=== PATIENT | female | born 2000 | race Caucasian/White ===

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

== ENCOUNTER 2019-05-15 00:25 | Emergency (ER) | payer OTHER ==
[~2019-05-15] VITALS: Ht 154.9 cm; Wt 63.5 kg
[2019-05-15 00:30] VITALS: BP 124/85
--- NOTE | 2019-05-15 00:40 | NUR ---
PT AMBULATED TO BED 11 WITH STEADY GAIT.
--- NOTE | 2019-05-15 00:54 | NUR ---
PT C/O 10/04 SHARP RIGHT SIDED ABDOMINAL PAIN RADIATING TO THE BACK X3 DAYS. STATES SHE HAS TAKEN ADVIL AND TUMS FOR THE PAIN. STATES SHE HAS HAD DIARRHEA X2 DAYS, IS PASSING GAS AND BURPING, AND HAS N/V LAST EMESIS YESTERAY. STATES SHE IS ABLE TO KEEP DOWN FLUIDS AND SOLIDS. HAS TENDERNESS IN THE ABDOMEN ON PALPATION. ALL FOUR ABDOMINAL QUADRANTS HYPOACTIVE. URINE SAMPLE COLLECTED. VSS. WILL CONTINUE TO MONITOR.
--- NOTE | 2019-05-15 01:00 | NUR ---
URINE DIP HCG NEGATIVE.
--- NOTE | 2019-05-15 01:02 | NUR ---
XRAY AT BEDSIDE.
[2019-05-15] MEDS ORDERED: LACTULOSE 20 GM/30 ML UDC PO ONE (01:30)
--- NOTE | 2019-05-15 02:15 | NUR ---
PT GIVEN LACTULOSE; WILL CONTINUE TO MONITOR.
[2019-05-15 02:16] VITALS: BP 124/85
== END 2019-05-15 02:16 | disposition home or self-care (01) ==
LOC: MED 00:25
DX: K59.00 Constipation, unspecified (principal); R11.2 Nausea with vomiting, unspecified
CPT/HCPCS: 74018; 81025; 99283; Q0092

== ENCOUNTER 2019-11-27 21:31 | Emergency (ER) | payer OTHER ==
[~2019-11-27] VITALS: Ht 154.9 cm; Wt 63.0 kg
[2019-11-27 21:42] VITALS: BP 141/94
[2019-11-27] MEDS ORDERED: KETOROLAC 60 MG/2 ML VIAL IM ONE (22:15)
[2019-11-27 22:57] VITALS: BP 141/94
== END 2019-11-27 22:58 | disposition home or self-care (01) ==
LOC: MED 21:31
DX: M94.0 Chondrocostal junction syndrome [Tietze] (principal)
CPT/HCPCS: 96372; 99283; J1885

== ENCOUNTER 2020-09-13 16:58 | Emergency (ER) | payer OTHER ==
[~2020-09-13] VITALS: Ht 154.9 cm; Wt 60.3 kg
[2020-09-13 17:08] VITALS: BP 114/85
--- NOTE | 2020-09-13 17:14 | NUR ---
PT AMBULATED TO BED 11 WITH STEADY GAIT
[2020-09-13] MEDS ORDERED: FAMOTIDINE 20 MG TAB PO ONE (17:35)
[2020-09-13] MEDS ORDERED: predniSONE 20 MG TAB PO ONE (17:35)
--- NOTE | 2020-09-13 17:50 | NUR ---
PA HURST AT BEDSIDE EVALUATING PT
[2020-09-13] MEDS ORDERED: LORA10TA19 PO (17:57)
[2020-09-13] MEDS ORDERED: PRED20TA5 PO (17:57)
[2020-09-13] MEDS ORDERED: DIPH25TA53 PO (17:57)
--- NOTE | 2020-09-13 18:20 | NUR ---
d/c with VSS. d/c education given. rx of benadryl, claritin, and prednisone.
== END 2020-09-13 18:20 | disposition home or self-care (01) ==
LOC: MED 16:58
DX: R21 Rash and other nonspecific skin eruption (principal); L29.9 Pruritus, unspecified; Z79.899 Other long term (current) drug therapy
CPT/HCPCS: 99284; J7512; Q0163

== ENCOUNTER 2021-01-11 08:05 | Emergency (ER) | payer OTHER ==
[~2021-01-11] VITALS: Ht 154.9 cm; Wt 59.0 kg
[~2021-01-11 08:05] MED LIST: DIPH25TA53 PO; LORA10TA19 PO; PRED20TA5 PO
[2021-01-11 08:08] VITALS: BP 114/75
--- NOTE | 2021-01-11 08:18 | NUR ---
PT AMBULATED TO BED 6
--- NOTE | 2021-01-11 08:27 | NUR ---
20/F BIB SELF WITH C/O RLQ PAIN X1 WEEK. PATIENT STATES PAIN CAME ON SUDDENLY AND HAS SINCE BEEN INTERMITTENT, SHARP 9/10 PAIN. PATIENT REPORTS PAIN WORSENS WITH TOUCH OR WALKING, STATES SHE FEELS CONSTIPATED AND STATES PAIN WORSENS WHEN STRAINING. PATIENT REPORTS INTERMITTENT EPISODES OF NAUSEA AND STATES SHE HAS HAD ONE EPISODE OF VOMITING DAILY SINCE PAIN BEGAN, STATES PAIN IS NON RADIATING. DENIES CP, SOB, FEVER OR CHILLS.
[2021-01-11 08:57] LABS: BASOPHILS % (AUTO) 0.3 % (0.0-2.0); EOSINOPHILS # (AUTO) 0.1 K/uL (0-0.4); HEMATOCRIT 37.9 % (36-48); HEMOGLOBIN 12.8 g/dL (12.0-16.0); LYMPHOCYTES # (AUTO) 1.8 K/uL (2.5-16.5); LYMPHOCYTES % (AUTO) 17.4 % (20.5-51.1); MEAN CORPUSCULAR HEMOGLOBIN 31 pg (27-31); MEAN CORPUSCULAR HGB CONC 34 g/dL (33-37); MEAN CORPUSCULAR VOLUME 92.6 fL (80-94); MONOCYTES # (AUTO) 0.8 K/uL (0.8-1.0); MONOCYTES % (AUTO) 7.8 % (1.7-9.3); NEUTROPHILS # (AUTO) 7.6 K/uL (1.8-7.7); NEUTROPHILS % (AUTO) 73.5 % (42.2-75.2); PLATELET COUNT (AUTO) 300 K/uL (140-450); RED BLOOD CELL COUNT(AUTO) 4.09 MIL/uL (4.20-5.40); RED CELL DISTRIBUTION WIDTH 13.1 % (11.6-13.7); WHITE BLOOD COUNT (AUTO) 10.4 K/uL (4.8-10.8)
[2021-01-11] MEDS: NACL 0.9% 1,000 ML IV SCH (09:00)
[2021-01-11] MEDS: MORPHINE SULFATE 2 MG/ML SYR IVP ONE (09:01)
[2021-01-11 09:11] LABS: PROTHROMBIN TIME 9.8 secs (10.8-13.4)
--- NOTE | 2021-01-11 09:11 | NUR ---
OBTAINED CT CONSENT, PLACED IN PT CHART AT THIS TIME.
[2021-01-11] MEDS: ONDANSETRON 4 MG/2 ML VIAL IVP ONE (09:17)
--- NOTE | 2021-01-11 09:18 | NUR ---
ULTRASOUND AT BEDSIDE
[2021-01-11 09:23] LABS: ALBUMIN 3.4 g/dL (3.4-5.0); ANION GAP 16.3 (8-16); CARBON DIOXIDE 25.2 mmol/L (21-32); CREATININE 0.7 mg/dL (0.6-1.3); POTASSIUM 3.5 mmol/L (3.5-5.1); TOTAL BILIRUBIN 0.3 mg/dL (0.0-1.0)
--- NOTE | 2021-01-11 09:45 | NUR ---
PT TAKEN TO CT VIA JUSTIN
[2021-01-11] MEDS ORDERED: ONDA-188 SL (11:13)
[2021-01-11 11:28] VITALS: BP 105/66
--- NOTE | 2021-01-11 11:28 | NUR ---
Patient discharged with v/s stable. Written and verbal after care instructions given OVARIAN CYST AND ABD PAIN and explained. Patient alert, oriented and verbalized understanding of instructions. Ambulatory with steady gait. All questions addressed prior to discharge. ID band removed. Patient advised to follow up with PMD. Rx of ZOFRAN given. Patient educated on indication of medication including possible reaction and side effects. Opportunity to ask questions provided and answered.
[2021-01-11 14:09] LABS: APPEARANCE,URINE CLEAR (CLEAR); BILIRUBIN,URINE NEGATIVE (NEGATIVE); BLOOD, URINE 3+ (NEGATIVE); COLOR,URINE YELLOW (YELLOW); LEUKOCYTE ESTERASE ,URINE TRACE (NEGATIVE); NITRITE, URINE POSITIVE (NEGATIVE); PH,URINE 6.5 (5.0-9.0); UGLUCOSE NEGATIVE (NEGATIVE)
[2021-01-11 14:29] LABS: RBC,URINE 50-80 /HPF (0-5); WBC,URINE 16-25 (MOD) /HPF (0-5)
== END 2021-01-11 11:28 | disposition home or self-care (01) ==
LOC: MED 08:05
DX: N94.89 Other specified conditions associated with female genital organs and menstrual cycle (principal); Z79.899 Other long term (current) drug therapy
CPT/HCPCS: 36415; 74177; 76856; 80053; 81001; 81025; 83690; 84703; 85025; 85610; 85730; 87086; 96361; 96374; 96375; 99285; J2270; J2405; J7030; Q0092; Q9967

== ENCOUNTER 2021-05-11 20:27 | Emergency (ER) | payer OTHER ==
[~2021-05-11] VITALS: Ht 154.9 cm; Wt 59.0 kg
[~2021-05-11 20:27] MED LIST changes: +ONDA-188 SL
[2021-05-11 20:30] VITALS: BP 138/83
--- NOTE | 2021-05-11 20:34 | NUR ---
AMBULATORY TO LOBBY
[2021-05-11] MEDS ORDERED: KETOROLAC 60 MG/2 ML VIAL IM ONE (20:35)
[2021-05-11] MEDS ORDERED: LIDOCAINE 5% 1 EA PATCH TP ONE (23:00)
[2021-05-11] MEDS ORDERED: IBUP-1842 PO (23:05)
[2021-05-11] MEDS ORDERED: LID5T TP (23:06)
[2021-05-11 23:45] VITALS: BP 138/83
--- NOTE | 2021-05-11 23:45 | NUR ---
Patient discharged with v/s stable. Written and verbal after care instructions given and explained. Patient alert, oriented and verbalized understanding of instructions. Ambulatory with steady gait. All questions addressed prior to discharge. ID band removed. Patient advised to follow up with PMD. Rx of motrin and lidoderm patch given. Patient educated on indication of medication including possible reaction and side effects. Opportunity to ask questions provided and answered.
== END 2021-05-11 23:45 | disposition home or self-care (01) ==
LOC: MED 20:27
DX: S29.012A Strain of muscle and tendon of back wall of thorax, initial encounter (principal); R51.9 Headache, unspecified; V43.52XA Car driver injured in collision with other type car in traffic accident, initial encounter; Y93.89 Activity, other specified; Y92.89 Other specified places as the place of occurrence of the external cause; Y99.8 Other external cause status
CPT/HCPCS: 96372; 99283; J1885

== ENCOUNTER 2021-06-12 11:58 | Emergency (ER) | payer OTHER ==
[~2021-06-12] VITALS: Ht 154.9 cm; Wt 61.7 kg
[~2021-06-12 11:58] MED LIST changes: +IBUP-1842 PO; +LID5T TP
[2021-06-12 12:02] VITALS: BP 126/76
--- NOTE | 2021-06-12 12:27 | NUR ---
PT AMBULATED TO ER BED 4
[2021-06-12 12:33] LABS: BASOPHILS % (AUTO) 0.6 % (0.0-2.0); EOSINOPHILS # (AUTO) 0.1 K/uL (0-0.4); EOSINOPHILS % (AUTO) 1.3 % (0.0-4.0); HEMOGLOBIN 13.1 g/dL (12.0-16.0); LYMPHOCYTES # (AUTO) 2.9 K/uL (2.5-16.5); LYMPHOCYTES % (AUTO) 43.4 % (20.5-51.1); MEAN CORPUSCULAR HEMOGLOBIN 30 pg (27-31); MEAN CORPUSCULAR HGB CONC 33 g/dL (33-37); MEAN CORPUSCULAR VOLUME 92.5 fL (80-94); MONOCYTES # (AUTO) 0.6 K/uL (0.8-1.0); MONOCYTES % (AUTO) 8.5 % (1.7-9.3); NEUTROPHILS % (AUTO) 46.2 % (42.2-75.2); PLATELET COUNT (AUTO) 253 K/uL (140-450); RED BLOOD CELL COUNT(AUTO) 4.32 MIL/uL (4.20-5.40); RED CELL DISTRIBUTION WIDTH 13.6 % (11.6-13.7); WHITE BLOOD COUNT (AUTO) 6.6 K/uL (4.8-10.8)
--- NOTE | 2021-06-12 12:33 | NUR ---
US AT BEDSIDE
--- NOTE | 2021-06-12 12:35 | NUR ---
21 Y/O FEMALE BIB SELF C/O ABDOMINAL PAIN WHICH RADIATES TO THE BACK RATED 7/10. PT STATES SHE HAS HAD PAIN X3 WEEKS BUT IN THE LAST 2 WEEKS THE PAIN HAS BEEN INTERMITTENT. PT HAD GALL BLADDER REMOVAL APPROX. 2 YRS AGO. PAIN IS EXACERBATED AFTER EATING AND SITTING FOR A PROLONGED AMOUNT OF TIME. PT DENIES TAKING MEDICATION PRIOR TO ARRIVAL. PT IS ALERT AND ORIENTED X4. BED IN LOWEST POSITION. BED RAIL X1. PMH: GALL BLADDER REMOVAL MEDS: DENIES NKA
[2021-06-12 13:00] LABS: APPEARANCE,URINE SL CLOUDY (CLEAR); BILIRUBIN,URINE NEGATIVE (NEGATIVE); BLOOD, URINE NEGATIVE (NEGATIVE); COLOR,URINE YELLOW (YELLOW); LEUKOCYTE ESTERASE ,URINE NEGATIVE (NEGATIVE); NITRITE, URINE NEGATIVE (NEGATIVE); UGLUCOSE NEGATIVE (NEGATIVE)
[2021-06-12 13:15] LABS: ANION GAP 13.3 (8-16); CARBON DIOXIDE 26.7 mmol/L (21-32); CREATININE 0.6 mg/dL (0.6-1.3); TOTAL BILIRUBIN 0.2 mg/dL (0.0-1.0)
[2021-06-12] MEDS ORDERED: DICYCLOMINE HCL LIQUID 20 MG, ALUMINUM HYD/MAG/SIMETHICONE 30 ML, LIDOCAINE VISCOUS 2% ... PO ONE ×3 (13:50)
[2021-06-12] MEDS ORDERED: ALUMINUM HYD/MAG/SIMETHICONE 30 ML UDC ONE (14:02)
[2021-06-12] MEDS ORDERED: DICYCLOMINE HCL LIQUID 10 MG/5 ML UDC ONE (14:03)
[2021-06-12] MEDS ORDERED: FAMO-90 PO (14:48)
[2021-06-12] MEDS ORDERED: ALUM355S59 PO (14:48)
[2021-06-12 15:09] VITALS: BP 126/76
--- NOTE | 2021-06-12 15:10 | NUR ---
Patient discharged with v/s stable. Written and verbal after care instructions given and explained. Patient alert, oriented and verbalized understanding of instructions. Ambulatory with steady gait. All questions addressed prior to discharge. ID band removed. Patient advised to follow up with PMD. Rx of MAG HYDROX/SIMETH,FAMOTIDINE given. Patient educated on indication of medication including possible reaction and side effects. Opportunity to ask questions provided and answered.
== END 2021-06-12 15:09 | disposition home or self-care (01) ==
LOC: MED 11:58
DX: R10.13 Epigastric pain (principal); R68.83 Chills (without fever); R11.0 Nausea; Z79.899 Other long term (current) drug therapy
CPT/HCPCS: 36415; 76705; 80053; 81003; 81025; 83690; 85025; 99284; Q0092

== ENCOUNTER 2022-01-09 17:32 | Emergency (ER) | payer OTHER ==
[~2022-01-09] VITALS: Ht 154.9 cm; Wt 63.5 kg
[~2022-01-09 17:32] MED LIST changes: +ALUM355S59 PO; +FAMO-90 PO
[2022-01-09] MEDS ORDERED: LIDOCAINE 5% 1 EA PATCH TP SCH (19:50)
[2022-01-09] MEDS ORDERED: KETOROLAC 15 MG/ML VIAL IM ONE (21:25)
[2022-01-09 21:45] VITALS: BP 127/80
[2022-01-09] MEDS ORDERED: IBUP-2213 PO (22:28)
[2022-01-09] MEDS ORDERED: LID5T TP (22:46)
[2022-01-09 22:49] LABS: APPEARANCE,URINE CLEAR (CLEAR); BILIRUBIN,URINE NEGATIVE (NEGATIVE); BLOOD, URINE NEGATIVE (NEGATIVE); COLOR,URINE YELLOW (YELLOW); LEUKOCYTE ESTERASE ,URINE NEGATIVE (NEGATIVE); NITRITE, URINE NEGATIVE (NEGATIVE); UGLUCOSE NEGATIVE (NEGATIVE)
[2022-01-09 23:05] VITALS: BP 127/80
--- NOTE | 2022-01-09 23:05 | NUR ---
Patient discharged with v/s stable. Written and verbal after care instructions given and explained. Patient alert, oriented and verbalized understanding of instructions. Ambulatory with steady gait. All questions addressed prior to discharge. ID band removed. Patient advised to follow up with PMD. Rx of LIDODERM AND IBUPROFEN given. Patient educated on indication of medication including possible reaction and side effects. Opportunity to ask questions provided and answered.
== END 2022-01-09 23:05 | disposition home or self-care (01) ==
LOC: MED 17:32
DX: S39.012A Strain of muscle, fascia and tendon of lower back, initial encounter (principal); V49.88XA Car occupant (driver) (passenger) injured in other specified transport accidents, initial encounter; Y93.89 Activity, other specified; Y92.89 Other specified places as the place of occurrence of the external cause; Y99.8 Other external cause status
CPT/HCPCS: 76856; 81003; 81025; 96372; 99284; J1885; Q0092